=== PATIENT | male | born 1975 | race Caucasian/White ===

== ENCOUNTER 2019-09-26 06:41 | Day surgery (SDC) | payer OTHER ==
[~2019-09-26] VITALS: Ht 188 cm; Wt 81.8 kg
[2019-09-26] MEDS ORDERED: GABAPENTIN100 MG PO (07:50)
[2019-09-26] MEDS ORDERED: PEPCID AC20 MG PO (07:51)
[2019-09-26] MEDS ORDERED: WELLBUTRIN SR150 MG PO (07:51)
[2019-09-26 07:52] VITALS: BP 114/80; Ht 188 cm; Wt 81.8 kg
--- NOTE | 2019-09-26 09:27 | NUR ---
0915 IV DC'D. CATHETER TIP INTACT. NO BLEEDING AT SITE. BANDAID APPLIED.
--- NOTE | 2019-09-26 15:02 | OP ---
PATIENT NAME: DAVI WETZEL MEDICAL RECORD: [id number] :73 [facility] AD[facility]ION DATE: SURGEON: NEGRA ENGLAND DO DATE OF OPERATION: 09/26/2019 PROCEDURE: EGD with biopsies. 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 SCOPE: Olympus video gastroscope. MEDICATIONS: Propofol 220 mg IV per anesthesia. ESTIMATED BLOOD LOSS: Minimal. COMPLICATIONS: None. FINDINGS: Informed consent was given. The patient was made comfortable with the above medication. After reaching an adequate level of sedation by slow IV push, the patient was placed on his left side. The endoscope was advanced under direct visualization through the mouth to the second portion of the duodenum with ease. In the hypopharynx, there were minor changes secondary to radiation therapy, mainly involving the epiglottis. The epiglottis appears somewhat fixed and slightly shrunken and less pliable. The endoscope was advanced beyond the hypopharynx into the esophagus. The mucosa of the esophagus appeared normal throughout. Random cold forceps biopsies were taken from the mid esophagus to submit for histopathology and to rule out the presence of eosinophils. At the GE junction, there were minor changes consistent with LA class A reflux-induced esophagitis. The endoscope was advanced beyond the GE junction into the stomach and retroflexed to view the cardia, which appeared normal. The fundus also appeared normal. The stomach body and antrum appeared normal. Cold forcep biopsies were taken from the antrum and incisura to submit for histopathology and to rule out the presence of H. pylori. The endoscope was advanced beyond the pylorus into the duodenum, which appeared normal to the second portion. Random cold forcep biopsies were taken from the small bowel and the endoscope was withdrawn from the patient. The patient tolerated the procedure well and there were no complications. IMPRESSION: 1. 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 2. LA class A reflux-induced esophagitis. PLAN AND RECOMMENDATIONS: 1. Discharge home when recovery parameters are met. 2. Follow up biopsy specimen results. 3. GERD diet and reflux precautions. 4. Aspiration precautions, as he is already taking. 5. Continue Pepcid as needed for reflux. 6. Notify the GI clinic if symptoms worsen. TRANSINT:[id number] Voice Confirmation ID: [id number] DOCUMENT ID: [id number] OPERATIVE REPORT [id number] DAVI WETZEL NATHAN A DO at 1502 CC: [id number] DICTATION DATE: 09/26/19 0848 SUSTAINABILITY PROJECT COORDINATOR: 09/26/19 [facility] 09/26/19 [place] [id number] [place] [id number]
== END 2019-09-26 09:24 | disposition home or self-care (01) ==
LOC: D.OPS 06:41
PROVIDERS: ATTEND Internal Medicine Gastroenterology
DX: R13.10 Dysphagia, unspecified (principal); Z85.810 Personal history of malignant neoplasm of tongue; Z92.3 Personal history of irradiation; Z92.21 Personal history of antineoplastic chemotherapy